=== PATIENT | male | born 1990 | race Caucasian/White ===

== ENCOUNTER 2017-08-20 16:10 | Emergency (ER) | payer OTHER ==
[~2017-08-20] VITALS: Ht 175.3 cm; Wt 136.5 kg
[2017-08-20 16:20] VITALS: BP 149/85
[2017-08-20] MEDS ORDERED: DICL100G18 TP (16:33)
--- NOTE | 2017-08-20 16:33 | PHYS DOC ---
Past History Past Medical History: No Pertinent History Past Surgical History: No Surgical History Additional Smoking Information: VAP [facility] Alcohol Use: None Drug Use: None Adult General Chief Complaint Chief Complaint: HAND PROBLEM HPI HPI Patient is a 27 year old M who presents with left hand pain over the past 4 weeks. He feels that his symptoms are worse with extension of his fingers and better with rest. He denies injury or other associated symptoms. Review of Systems Review of Systems Constitutional: Denies fever or chills [] Eyes: Denies change in visual acuity, redness, or eye pain [] HENT: Denies nasal congestion or sore throat [] Respiratory: Denies cough or shortness of breath [] Cardiovascular: No additional information not addressed in HPI [] GI: Denies abdominal pain, nausea, vomiting, bloody stools or diarrhea [] : Denies dysuria or hematuria [] Musculoskeletal: Denies back pain or joint pain [] Integument: Denies rash or skin lesions [] Neurologic: Denies headache, focal weakness or sensory changes [] Endocrine: Denies polyuria or polydipsia [] Family History Family History Noncontributory Current Medications Current Medications Medications reviewed Allergies Allergies Allergies Coded Allergies Type Severity Reaction Last Updated Verified No Known Drug Allergies 08/20/17 No Physical Exam Physical Exam Constitutional: Well developed, well nourished, no acute distress, non-toxic appearance. [] HENT: Normocephalic, atraumatic Eyes: EOMI, conjunctiva normal, no discharge. [] Cardiovascular:Heart rate regular rhythm, no murmur [] Lungs & Thorax: Bilateral breath sounds clear to auscultation [] Abdomen: Bowel sounds normal, soft, no tenderness, no masses, no pulsatile masses. [] Extremities: no cyanosis, no clubbing, ROM intact, no edema. [] Left hand: No obvious deformity abrasion or ecchymosis. Normal range of motion. Normal strength with pain noted on extension and particularly with resistance to extension of the third and fourth fingers. Neurovascularly intact Neurologic: Alert and oriented X 3, normal motor function, normal sensory function, no focal deficits noted. [] Psychologic: Affect normal, judgement normal, mood normal. [] Current Patient Data Vital Signs Vital Signs Date Time Temp Pulse Resp B/P (MAP) Pulse Ox O2 Delivery O2 Flow Rate FiO2 08/20/17 16:20 97.7 78 18 99 Room Air EKG EKG [] Radiology/Procedures Radiology/Procedures Imaging was declined Course & Med Decision Making Course & Med Decision Making Pertinent Labs and Imaging studies reviewed. (See chart for details) [] Dragon Disclaimer Dragon Disclaimer This chart was dictated in whole or in part using Voice Recognition software in a busy, high-work load, and often noisy Emergency Department environment. It may contain unintended and wholly unrecognized errors or omissions. Departure Departure: Impression: Primary Impression: Tendonitis Disposition: HOME, SELF-CARE Condition: STABLE Referrals: PCP,NO (PCP) Patient Instructions: Extensor Carpi Ulnaris Tendinitis with Rehab[facility] Additional Instructions: Hill was seen in the emergency department for hand pain. No emergency medical condition was found on history or physical exam. His symptoms are most consistent with tendinitis. He is given a prescription for Voltaren gel and advised consider lidocaine patches for pain. He is advised follow-up with his primary care doctor as needed for further management. He should consider physical therapy if his symptoms do not improve. Scripts Diclofenac Sodium (VOLTAREN) 100 Gm Gel..gram. 1 GM TP QID, #100 GM 2 Refills Prov: DAVIDSON MORAN MD 08/20/17 DAVIDSON MORAN MD Aug 20, 2017 16:33
== END 2017-08-20 16:38 | disposition home or self-care (01) ==
LOC: ER 16:10
DX: M77.9 Enthesopathy, unspecified (principal)
CPT/HCPCS: 99283

== ENCOUNTER 2021-05-03 23:33 | Emergency (ER) | payer MEDICAID, OTHER ==
[~2021-05-03] VITALS: Ht 175.3 cm; Wt 166.0 kg
[~2021-05-03 23:33] MED LIST: DICL100G18 TP
--- NOTE | 2021-05-04 00:32 | PHYS DOC ---
Past History Past Medical History: No Pertinent History Past Surgical History: No Surgical History Additional Smoking Information: Vaps Alcohol Use: Rarely Drug Use: None Adult General Chief Complaint Chief Complaint: SKIN PROBLEM HPI HPI Patient is a 30-year-old male, otherwise healthy presents with bleeding around his left ankle. States he had a scab there and was scraping it and it started to bleed. States he seemed to have a hard time stopping the bleeding so he came into the emergency department. Denies any trouble during his lifetime with bleeding. Denies any recent traumas, illnesses, fevers, use of blood thinners. States he actually got it to stop by using gorilla tape. States it had not bled since he was in the emergency department. Review of Systems Review of Systems Review of systems otherwise unremarkable except noted in HPI Allergies Allergies Allergies Coded Allergies Type Severity Reaction Last Updated Verified No Known Drug Allergies 08/20/17 No Physical Exam Physical Exam Constitutional: Well developed, well nourished, no acute distress, non-toxic appearance. [] Extremities: No tenderness, patient has 1/4 cm scab on left outer ankle. Hemostasis achieved. Neurovascular exam intact. Neurologic: Alert and oriented X 3, no focal deficits noted. [] Psychologic: Affect normal, judgement normal, mood normal. [] Current Patient Data Vital Signs Vital Signs Date Time Temp Pulse Resp B/P (MAP) Pulse Ox O2 Delivery O2 Flow Rate FiO2 05/03/21 23:47 97.6 86 18 134/77 97 Room Air EKG EKG [] Radiology/Procedures Radiology/Procedures [] Heart Score C/O Chest Pain: No Risk Factors: Risk Factors: DM, Current or recent (<one month) smoker, HTN, HLP, family history of CAD, obesity. Risk Scores: Risk Factors: DM, Current or recent (<one month) smoker, HTN, HLP, family history of CAD, obesity. Course & Med Decision Making Course & Med Decision Making Patient is a 30-year-old male who presents with bleeding after scratching of a scab at home Vital signs not concerning. Physical exam noted above. No intervention needed at this time. Patient up-to-date on tetanus. Bleeding completely controlled in the emergency department. Cleaned and bandaged. Discussed all findings with patient advised to follow-up with primary care. Gave return precautions to the ED. Patient grateful, verbalized understanding and agreed with plan of discharge. [] Dragon Disclaimer Dragon Disclaimer This electronic medical record was generated, in whole or in part, using a voice recognition dictation system. Departure Departure: Disposition: HOME / SELF CARE / HOMELESS Condition: GOOD Referrals: PCP,NO (PCP) DAVDISON CEVALLOS MD Patient Instructions: Abrasion, [id number] Additional Instructions: Thanks for coming into the emergency department tonight and allowing us to take care of you. Please be careful when scratching your skin as to not cause further damage. As discussed if you have a scab that is damaged and causes bleeding you can clean with cool water for several minutes, with warm soap and apply direct pressure. Please follow-up with your primary care physician when you can. Please come back to the ED with new or concerning symptoms as discussed. TRAN COLINDRES MD May 04, 2021 00:32
[2021-05-04 00:35] VITALS: BP 130/76
== END 2021-05-04 00:39 | disposition home or self-care (01) ==
LOC: ER 23:33
DX: R23.4 Changes in skin texture (principal)
CPT/HCPCS: 99282

== ENCOUNTER 2021-05-04 12:29 | Emergency (ER) | payer SELFPAY ==
[~2021-05-04] VITALS: Ht 175.3 cm; Wt 166.0 kg
[2021-05-04 12:38] VITALS: BP 131/74
--- NOTE | 2021-05-04 13:27 | PHYS DOC ---
Past History Past Medical History: No Pertinent History (ELBA RODRIGUEZ APRN) Past Surgical History: No Surgical History (ELBA RODRIGUEZ APRN) Additional Smoking Information: VAPING Alcohol Use: None Drug Use: None (ELBA RODRIGUEZ APRN) General Adult EDM: Chief Complaint: OTHER COMPLAINTS HPI: HPI: Patient is a 30-year-old male who presents with abrasion on left leg. Patient states "I scratched a sore on my left lower leg and started bleeding". "I put gauze on the wound because it was squirting blood". Bleeding was controlled upo n arrival to the emergency room. Denies pain. (ELBA RODRIGUEZ APRN) Review of Systems: Review of Systems: Constitutional: Denies fever or chills Eyes: Denies change in visual acuity HENT: Denies nasal congestion or sore throat Respiratory: Denies cough or shortness of breath Cardiovascular: Denies chest pain or edema GI: Denies abdominal pain, nausea, vomiting, bloody stools or diarrhea : Denies dysuria Musculoskeletal: Denies back pain or joint pain Integument: Abrasion to left lower leg Neurologic: Denies headache, focal weakness or sensory changes Endocrine: Denies polyuria or polydipsia Lymphatic: Denies swollen glands Psychiatric: Denies depression or anxiety (ELBA RODRIGUEZ APRN) Allergies: Allergies: Allergies Coded Allergies Type Severity Reaction Last Updated Verified No Known Drug Allergies 08/20/17 No (ELBA RODRIGUEZ APRN) Physical Exam: PE: Constitutional: Well developed, well nourished, no acute distress, non-toxic ap pearance. [] HENT: Normocephalic, atraumatic, bilateral external ears normal, oropharynx moist, no oral exudates, nose normal. [] Eyes: PERRLA, EOMI, conjunctiva normal, no discharge. [] Neck: Normal range of motion, no tenderness, supple, no stridor. [] Cardiovascular:Heart rate regular rhythm, no murmur [] Lungs & Thorax: Bilateral breath sounds clear to auscultation [] Abdomen: Bowel sounds normal, soft, no tenderness, no masses, no pulsatile masses. [] Skin: Patient has 1/4 cm scab on left outer ankle. Bleeding controlled Back: No tenderness, no CVA tenderness. [] Extremities: No tenderness, no cyanosis, no clubbing, ROM intact, no edema. [] Neurologic: Alert and oriented X 3, normal motor function, normal sensory function, no focal deficits noted. [] Psychologic: Affect normal, judgement normal, mood normal. [] (ELBA RODRIGUEZ APRN) Current Patient Data: Vital Signs: Vital Signs Date Time Temp Pulse Resp B/P (MAP) Pulse Ox O2 Delivery O2 Flow Rate FiO2 05/04/21 12:38 76 20 131/74 99 Room Air (ELBA RODRIGUEZ APRN) EKG: EKG: [] (ELBA RODRIGUEZ APRN) Radiology/Procedures: Radiology/Procedures: [] (ELBA RODRIGUEZ APRN) Heart Score: C/O Chest Pain: No Risk Factors: Risk Factors: DM, Current or recent (<one month) smoker, HTN, HLP, family history of CAD, obesity. Risk Scores: Score 0 - 3: 2.5% MACE over next 6 weeks - Discharge Home Score 4 - 6: 20.3% MACE over next 6 weeks - Admit for Clinical Observation Score 7 - 10: 72.7% MACE over next 6 weeks - Early Invasive Strategies (ELBA RODRIGUEZ APRN) Course & Med Decision Making: Course & Med Decision Making Pertinent Labs and Imaging studies reviewed. (See chart for details) [] 30-year-old male who presents with an abrasion to his left leg. Patient reports scratching a sore on his leg when the abrasion started bleeding and he was unable to get it to stop. Patient had wound wrapped and bleeding was controlled upon arrival to the emergency room. Patient's wound was rewrapped and gauze applied. Explained to patient not to scratch or rub the wound to prevent bleeding. Patient given instructions for abrasion were to start bleeding again. Patient instructed to return to the emergency room if bleeding is unable to be controlled at home. Patient states that he understands and is appreciative of care. (ELBA RODRIGUEZ APRN) Course & Med Decision Making I oversaw on the above date of service of this patient. This patient was evaluated, examined, treated, and dispositioned from the emergency department by the mid-level practitioner. Although I was working at the time and available for consultation, no assistance was requested and I did not see or immediately direct the care of this patient. I reviewed note and agree to findings, plan of care, and disposition as stated. Electronically signed, Kenya Mojica DO (KENYA MOJICA DO) Ever Disclaimer: Ever Disclaimer: This electronic medical record was generated, in whole or in part, using a voice recognition dictation system. (MICHAELELBA SENIOR SOFTWARE DEVELOPMENT ENGINEER) Departure Departure: Impression: Primary Impression: Wound of left lower extremity Qualified Codes: S81.802A - Unspecified open wound, left lower leg, initial encounter Disposition: HOME / SELF CARE / HOMELESS Condition: STABLE Referrals: PCP,NO (PCP) Patient Instructions: Wound Care, [id number] Additional Instructions: EMERGENCY DEPARTMENT GENERAL DISCHARGE INSTRUCTIONS Thank you for coming to [facility] (ED) today and trusting us with you care. We trust that you had a positivie experience in our Emergency Department. If you wish to speak to the department management, you may call the director at [phone]. YOUR FOLLOW UP INSTRUCTIONS ARE FOLLOWS: 1. Do you have a private Doctor? If you do not have a private doctor, please ask for a resource list of physicians or clinics that may be able to assist you with follow up care. 2. The Emergency Physician has interpreted your x-rays. The X-Ray specialist will also review them. If there is a change in the findings, you will be notified in 48 hours when at all possible. 3. A lab test or culture has been done, your results will be reviewed and you will be notified if you need a change in treatment. ADDITIONAL INSTRUCTIONS AND INFORMATION: 1. Your care today has been supervised by a physician who is specially trained in emergency care. Many problems require more than one evaluation for a complete diagnosis and treatment. We recommend that you schedule your follow up appointment as recommended to ensure complete treatment of you illness or injury. If you are unable to obtain follow up care and continue to have a problem, or if your condition worsens, we recommend that you return to the ED. 2. We are not able to safely determine your condition over the phone nor are we able to give sound medical advice over the phone. For these safety reasons, if you call for medical advice we will ask you to come to the ED for further evaluation. 3. If you have any questions regarding these discharge instructions please call the ED at [phone]. SAFETY INFORMATION: In the interest of safety, wellness, and injury prevention; we encourage you to wear your sealbelt, if you smoke; quite smoking, and we encourage family to use a protective helmet for bicycling and other sporting events that present an increased risk for head injury. IF YOUR SYMPTOMS WORSEN OR NEW SYMPTOMS DEVELOP, OR YOU HAVE CONCERNS ABOUT YOUR CONDITION; OR IF YOUR CONDITION WORSENS WHILE YOU ARE WAITING FOR YOUR FOLLOW UP APPOINTMENT; EITHER CONTACT YOUR PRIMARY CARE DOCTOR, THE PHYSICIAN WHOSE NAME AND NUMBER YOU WERE GIVEN, OR RETURN TO THE ED IMMEDIATELY. ELBA RODRIGUEZ APRN May 04, 2021 13:27 KENYA MOJICA DO May 08, 2021 08:59
== END 2021-05-04 13:37 | disposition home or self-care (01) ==
LOC: ER 12:29
DX: S80.812A Abrasion, left lower leg, initial encounter (principal); W50.4XXA Accidental scratch by another person, initial encounter; Y93.89 Activity, other specified; Y92.89 Other specified places as the place of occurrence of the external cause; Y99.8 Other external cause status
CPT/HCPCS: 99281

== ENCOUNTER 2021-11-08 08:41 | Emergency (ER) | payer MEDICAID ==
[~2021-11-08] VITALS: Ht 175.3 cm; Wt 160.5 kg
[2021-11-08 08:59] VITALS: BP 154/70
--- NOTE | 2021-11-08 09:05 | PHYS DOC ---
Past History Past Medical History: No Pertinent History Past Surgical History: No Surgical History Alcohol Use: None Drug Use: None Adult General Chief Complaint Chief Complaint: FLANK PAIN HPI HPI Patient is a 31yo m presenting for multiple symptoms. Reports he had upper respiratory symptoms that started 2 weeks ago that later developed into nausea and generalized GI upset and diarrhea. He has had diarrhea for past 3 days. States he took more than usual Mucinex recently which he attributes to his increased diarrhea. He presents today because he feels dehydrated and has had subjective fever and chills. He has no known medical issues and takes no medications on a daily basis, does admit he is vaccinated against COVID-19 but admits he has been in work place that has been full of individuals calling off for URI symptoms Review of Systems Review of Systems Fourteen body systems of review of systems have been reviewed. See HPI for pertinent positives and negative responses, other garcia all other systems are negative, non-pertinent or non-contributory Allergies Allergies Allergies Coded Allergies Type Severity Reaction Last Updated Verified No Known Drug Allergies 08/20/17 No Physical Exam Physical Exam Constitutional: Well developed, obese, well nourished, no acute distress, non- toxic appearance. HENT: Normocephalic, atraumatic, bilateral external ears normal, oropharynx moist, no oral exudates, nose normal. Eyes: PERRLA, EOMI, conjunctiva normal, no discharge. Neck: Normal range of motion, no tenderness, supple, no stridor. Cardiovascular: Heart rate regular, sinus rhythm, no murmurs rubs or gallops Lungs & Thorax: Bilateral breath sounds clear to auscultation Abdomen: Bowel sounds normal, soft, no tenderness, no masses, no pulsatile masses. Nonsurgical abdomen, no peritoneal signs Skin: Warm, dry, no erythema, no rash. Back: No tenderness, no CVA tenderness. Extremities: No tenderness, no cyanosis, no clubbing, ROM intact, no edema. Neurologic: Alert and oriented X 3, grossly normal motor & sensory function, no focal deficits noted. Psychologic: Affect normal, judgement normal, mood normal. Current Patient Data Vital Signs Vital Signs Date Time Temp Pulse Resp B/P (MAP) Pulse Ox O2 Delivery O2 Flow Rate FiO2 11/08/21 08:59 98.1 77 18 154/70 (98) 97 EKG EKG [] Radiology/Procedures Radiology/Procedures [] Heart Score C/O Chest Pain: No Risk Factors: Risk Factors: DM, Current or recent (<one month) smoker, HTN, HLP, family history of CAD, obesity. Risk Scores: Risk Factors: DM, Current or recent (<one month) smoker, HTN, HLP, family history of CAD, obesity. Course & Med Decision Making Course & Med Decision Making ABCs unremarkable HPI and physical exam nonconcerning for any emergent or surgical issues Patient well-appearing and hemodynamically stable, I discussed my concern for potential viral versus other self-limiting illness. Despite being vaccinated against COVID-19, joint decision made to test with PCR COVID swab obtained and results pending. Supportive care and self quarantine instructed Patient tolerating p.o. liquids today with no nausea. He has not taken loperamide or other antidiarrheal. He has no other concerning external exposures or travel such as recent camping, antibiotic use, qureshi exposure etc. No indication for stool studies at present Joint decision made with patient to administer dose of loperamide with self quarantine and continued supportive care practices and close PCP follow-up when safe to do so Dragon Disclaimer Dragon Disclaimer This electronic medical record was generated, in whole or in part, using a voice recognition dictation system. Departure Departure: Impression: Primary Impression: Diarrhea Additional Impression: Person under investigation for COVID-19 Disposition: 01 HOME / SELF CARE / HOMELESS Condition: STABLE Referrals: PCPMARITZA (PCP) Additional Instructions: You were seen in the ED for evaluation of diarrhea. While the cause of the diarrhea is not known, it is most likely viral in nature, which does not respond to antibiotics and typically will resolve with time. It will be important to monitor your fluid intake to avoid dehydration and other symptoms closely as if your symptoms to not improve in the next few days, you will likely need further testing and more aggressive management. In addition, we tested you for COVID-19 but this test does not come back for 1 to 2 days. In the meantime you need to quarantine yourself at home away from all other individuals, especially those who are elderly or have any other chronic health issues or an immunocompromised status. You should return to the ED if you develop worsening cough, shortness of breath, chest pain, or any other new or concerning symptoms. Alternate Tylenol and ibuprofen as needed for body aches and pain. If your test does come back positive you need to quarantine yourself for 10 days until symptom-free. You should make sure to drink plenty of fluids and get plenty of rest. Problem Qualifiers KENYA MOJICA DO Nov 08, 2021 09:05
[2021-11-08] MEDS ORDERED: LOPERAMIDE 2 MG CAPSULE PO ONE (09:30)
== END 2021-11-08 09:47 | disposition home or self-care (01) ==
LOC: ER 08:41
DX: R19.7 Diarrhea, unspecified (principal); Z20.822 Contact with and (suspected) exposure to COVID-19
CPT/HCPCS: 99283; C9803; U0003